=== PATIENT | male | born 1995 | race Caucasian/White ===

== ENCOUNTER 2022-10-29 04:07 | Emergency (ER) | payer MEDICARE, OTHER ==
[~2022-10-29] VITALS: Ht 188 cm; Wt 90.7 kg
[2022-10-29 04:09] VITALS: BP 153/86
--- NOTE | 2022-10-29 04:15 | NUR ---
RECEIVED 27 YRS MALE, CAME FOR R THIGH ABSCESS X 5 DAYS
[2022-10-29] MEDS ORDERED: SULF1TAB48 PO (04:41)
[2022-10-29] MEDS ORDERED: CEPH500C2 PO (04:41)
[2022-10-29] MEDS ORDERED: SULFAMETH/TRIMETH 800/160 MG 1 UDTAB TABLET ONE (04:44)
[2022-10-29] MEDS ORDERED: CEPHALEXIN MONOHYDRATE 500 MG CAPSULE PO ONE ×2 (04:44→05:00)
--- NOTE | 2022-10-29 04:51 | NUR ---
Patient discharged to home in stable condition. Written and verbal after care instructions given. Patient verbalizes understanding of instruction.
[2022-10-29] MEDS ORDERED: SULFAMETH/TRIMETH 800/160 MG 1 UDTAB TABLET PO ONE (05:00)
== END 2022-10-29 04:52 | disposition home or self-care (01) ==
LOC: ER 04:11
DX: L03.115 Cellulitis of right lower limb (principal)